=== PATIENT | female | born 1940 | race Two or more races ===

== ENCOUNTER 2024-06-03 10:10 | Emergency (ER) | payer OTHER ==
[~2024-06-03] VITALS: Ht 162.6 cm; Wt 59.0 kg
[2024-06-03] MEDS ORDERED: LOSARTAN-HCTZ1 EAC2 PO (10:52)
[2024-06-03] MEDS ORDERED: VERELAN PM200 MG (10:53)
[2024-06-03] MEDS ORDERED: LEVOXYL150 MCG PO (10:53)
[2024-06-03] MEDS ORDERED: SYNTHROID175 MCG PO (10:53)
[2024-06-03] MEDS ORDERED: BIOTIN1 M1 PO (10:54)
[2024-06-03 12:20] LABS: HEMATOCRIT 38.8 % (36.0-45.00); HEMOGLOBIN 13.3 g/dL (12.0-15.00); MEAN CELL VOLUME 92.6 fL (80.00-100.00); MEAN CORPUSCULAR HEMOGLOBIN 31.7 pg (27.00-32.0); MEAN CORPUSCULAR HGB CONC 34.3 g/dl (32.0-36.0); PLATELET COUNT 203 K/uL (150-450); RED BLOOD COUNT 4.19 M/uL (4.00-6.00); RED CELL DISTRIBUTION WIDTH 13.7 % (11.5-14.5)
[2024-06-03] MEDS ORDERED: GILTUSS COUGH-118 M1 PO (14:17)
[2024-06-03] MEDS ORDERED: ACETAMINOPHEN500 M1 PO ×2 (14:18)
== END 2024-06-03 14:54 | disposition home or self-care (01) ==
LOC: ER 10:13
PROVIDERS: Preventive Medicine Public Health & General Preventive Medicine
DX: B34.9 Viral infection, unspecified (principal); R05.9 Cough, unspecified; Z20.822 Contact with and (suspected) exposure to COVID-19; I10 Essential (primary) hypertension; E03.8 Other specified hypothyroidism